=== PATIENT | male | born 1985 | race Caucasian/White ===

== ENCOUNTER 2025-05-08 14:55 | Emergency (ER) | payer BC, SELFPAY ==
[2025-05-08] MEDS ORDERED: Ketorolac Tromethamine 30 MG (1 mL) VIAL ONE (16:04)
== END 2025-05-08 16:31 | disposition home or self-care (01) ==
LOC: CSHERS 14:55
DX: K03.81 Cracked tooth (principal); F17.220 Nicotine dependence, chewing tobacco, uncomplicated
CPT/HCPCS: 96372; 99282; J1885